=== PATIENT | male | born 1955 | race Caucasian/White ===

== ENCOUNTER 2020-02-25 22:11 | Emergency (ER) | payer OTHER ==
[~2020-02-25] VITALS: Ht 180.3 cm; Wt 90.7 kg
[~2020-02-25 22:11] MED LIST: BENTYL10 MG PO; BIAXIN 500 MG500 M1; CARISOPRODOL 3350 MG PO; CLONAZEPAM 1 MG1 M1 PO; CLONAZEPAM PO; DARVOCET-N 1001 EACH PO; DOXYCYCLINE 10100 MG PO; DULCOLAX STOOL100 MG PO; FLAGYL500 MG; HYTRIN 5 M5 MG/1 CAP PO; IBUPROFEN 400400 M1 PO; IBUPROFEN 600600 M1 PO; MEDROLDOSEPACK PO; NORFLEX100 MG PO; OXYIR5 MG PO; PERCOCET 5-3251 EACH PO; PHENERGAN 25 MG25 M1 PO; PREDNISONE 20 M20 MG PO; PRILOSEC40 MG PO; PYRIDIUM100 MG; RESTORIL30 MG PO; VALIUM5 MG PO; VICODIN PO; ZPAK PO
[2020-02-25 23:57] LABS: BASOPHILS 0.9 % (0.0-2.0); EOSINOPHILS 2.4 % (0.0-3.0); HEMATOCRIT 43.5 % (42.0-52.0); HEMOGLOBIN 14.7 gm/dL (14.0-18.0); LYMPHOCYTES 19.1 % (24.0-44.0); MCH 31.4 pg (26.0-34.0); MCHC 33.9 g/dL (28.0-37.0); MCV 92.5 fL (80.0-100.0); MONOCYTES 9.7 % (1.0-8.0); PLATELET COUNT 233 thou/uL (150-400); POLYS 67.9 % (36.0-66.0); RDW 13.8 % (10.5-14.5); WBC 11.7 thou/uL (4.0-11.0)
[2020-02-26 00:02] LABS: ANION GAP 11 mmol/L (7-16); BUN 10 mg/dL (7-18); CALCIUM 8.5 mg/dL (8.5-10.1); CHLORIDE 100 mmol/L (98-107); CO2 26 mmol/L (21-32); CREATININE 0.7 mg/dL (0.7-1.3); GLUCOSE 112 mg/dL (74-106); POTASSIUM 3.7 mmol/L (3.5-5.1); SODIUM 137 mmol/L (136-145)
[2020-02-26 00:08] LABS: ALBUMIN 3.4 g/dL (3.4-5.0); SALICYLATE < 2.8 mg/dL (2.8-20.0); SGOT 17 U/L (15-37); SGPT 19 U/L (30-65); TOTAL BILIRUBIN 0.2 mg/dL (0.2-1.0); TOTAL PROTEIN 7.2 g/dL (6.4-8.2)
[2020-02-26] MEDS ORDERED: AZITHROMYCIN250 MG PO (00:43)
[2020-02-26 01:03] VITALS: BP 165/89
== END 2020-02-26 02:29 | disposition home or self-care (01) ==
LOC: ER 22:11
PROVIDERS: Emergency Medicine
DX: J20.9 Acute bronchitis, unspecified (principal); H66.91 Otitis media, unspecified, right ear; Z79.899 Other long term (current) drug therapy; Z20.828 Contact with and (suspected) exposure to other viral communicable diseases

== ENCOUNTER 2020-04-26 14:19 | Emergency (ER) | payer OTHER ==
[~2020-04-26] VITALS: Ht 175.3 cm; Wt 79.4 kg
[~2020-04-26 14:19] MED LIST changes: +AZITHROMYCIN250 MG PO
[2020-04-26 15:24] LABS: URINE BILIRUBIN NEGATIVE (Negative); URINE BLOOD NEGATIVE (Negative); URINE CLARITY CLEAR; URINE COLOR YELLOW; URINE GLUCOSE-RANDOM* NEGATIVE (Negative); URINE KETONES NEGATIVE (Negative); URINE LEUKOCYTES-REFLEX NEGATIVE (Negative); URINE NITRITE-REFLEX NEGATIVE (Negative); URINE PROTEIN (DIPSTICK) NEGATIVE (Negative); URINE SPECIFIC GRAVITY 1.015 (1.005-1.035)
[2020-04-26] MEDS ORDERED: IBUPROFEN 600600 M1 PO (17:04)
[2020-04-26] MEDS ORDERED: VENTOLIN HFA 1818 GM INH (17:04)
[2020-04-26 17:20] VITALS: BP 145/76
== END 2020-04-26 17:20 | disposition home or self-care (01) ==
LOC: ER 14:19
PROVIDERS: Emergency Medicine
DX: U07.1 COVID-19 (principal); F41.9 Anxiety disorder, unspecified; I25.2 Old myocardial infarction; Z98.890 Other specified postprocedural states

== ENCOUNTER 2021-01-06 13:57 | Emergency (ER) | payer OTHER ==
[~2021-01-06] VITALS: Ht 175.3 cm; Wt 90.7 kg
[~2021-01-06 13:57] MED LIST changes: +VENTOLIN HFA 1818 GM INH
[2021-01-06 14:58] LABS: URINE BILIRUBIN NEGATIVE (Negative); URINE BLOOD NEGATIVE (Negative); URINE CLARITY CLEAR; URINE COLOR YELLOW; URINE GLUCOSE-RANDOM* NEGATIVE (Negative); URINE KETONES NEGATIVE (Negative); URINE LEUKOCYTES-REFLEX NEGATIVE (Negative); URINE NITRITE-REFLEX NEGATIVE (Negative); URINE PROTEIN (DIPSTICK) NEGATIVE (Negative); URINE SPECIFIC GRAVITY 1.015 (1.005-1.035); URINE UROBILINOGEN 0.2 E.U./dl (0.2-1.0)
[2021-01-06 15:56] LABS: ABSOLUTE NEUTROPHILS 3.8 thou/uL (1.4-8.2); HEMATOCRIT 43.9 % (42.0-52.0); LYMPHOCYTES 27.4 % (24.0-44.0); MCH 30.6 pg (26.0-34.0); MCHC 34.2 g/dL (28.0-37.0); MCV 89.4 fL (80.0-100.0); MONOCYTES 9.6 % (1.0-8.0); PLATELET COUNT 181 thou/uL (150-400); RDW 13.7 % (10.5-14.5); WBC 6.4 thou/uL (4.0-11.0)
[2021-01-06 16:07] LABS: CALCIUM 8.9 mg/dL (8.5-10.1); CREATININE 0.9 mg/dL (0.7-1.3); POTASSIUM 3.8 mmol/L (3.5-5.1)
[2021-01-06 16:13] LABS: ALBUMIN 3.5 g/dL (3.4-5.0); TOTAL BILIRUBIN 0.3 mg/dL (0.2-1.0)
[2021-01-06] MEDS ORDERED: COLACE100 MG PO (17:01)
[2021-01-06 17:11] VITALS: BP 142/84
== END 2021-01-06 17:12 | disposition home or self-care (01) ==
LOC: ER 13:57
PROVIDERS: Emergency Medicine
DX: K59.00 Constipation, unspecified (principal)